=== PATIENT | male | born 1975 | race Caucasian/White ===

== ENCOUNTER 2024-10-15 17:02 | Emergency (ER) | payer SELFPAY ==
[~2024-10-15] VITALS: Ht 180.3 cm; Wt 117.9 kg
[2024-10-15 17:18] VITALS: O2SAT 98
[2024-10-15] MEDS ORDERED: SODIUM CHLORIDE 0.9% 1,000 ML IV ONE (18:45)
[2024-10-15 19:01] LABS: BASOPHILS % 0.7 % (0.0-2.0); EOSINOPHILS % 0.8 % (0.0-5.0); HEMATOCRIT. 44.1 % (42.0-52.0); HEMOGLOBIN. 15.5 g/dL (14.0-18.0); LYMPHOCYTES % 12.7 % (20.0-50.0); MEAN PLATELET VOLUME 7.2 fl (7.4-10.4); MONOCYTES % 6.1 % (2.0-8.0); NEUTROPHILS % 79.7 % (40.0-76.0); PLATELET 274 x1000/uL (130-400); RED BLOOD CELL COUNT 4.86 mill/uL (4.7-6.1); RED CELL DISTRIBUTION WIDTH 12.7 % (11.6-14.6)
[2024-10-15 19:16] LABS: CREATININE 0.9 mg/dL (0.6-1.3); UREA NITROGEN BLOOD 11 mg/dL (9-23)
[2024-10-15 19:48] LABS: INFLUENZA TYPE A Presumptive Negative (Pres. Neg.)
[2024-10-15 19:49] LABS: INFLUENZA TYPE B Presumptive Negative (Pres. Neg.)
[2024-10-15 20:18] VITALS: BP 123/90; PULSE 96; RESP 22; TEMP 37; O2SAT 97
[2024-10-16] MEDS ORDERED: PSEU120T56 MT (00:01)
== END 2024-10-16 00:46 | disposition home or self-care (01) ==
LOC: ER 17:02
DX: U07.1 COVID-19 (principal)
CPT/HCPCS: 99284; 87426; 80048; 85025; 87804 ×2; 36415; 93005; J7030